=== PATIENT | female | born 2000 | race African-American/Black ===

== ENCOUNTER 2019-11-17 20:38 | Emergency (ER) | payer BC ==
[2019-11-17 20:55] VITALS: BP 123/77; TEMP 98.9; BMI 29.0
[2019-11-17] MEDS ORDERED: methylPREDNISolone NA SUCC 125 MG/2 ML VIAL IM ONE (22:30)
--- NOTE | 2019-11-17 22:32 | PDOC ---
History of Present Illness - General Chief Complaint: Asthma Stated Complaint: ASTHMA Time Seen by Provider: 11/17/19 22:24 History Source: Patient - History of Present Illness Initial Comments: 11/17/19 22:27 19 year old female with history of ASTHMA c/o wheezing and reports using inhaler 5 times at home. denies fever/ chills, uri/ cough. ASTHMA ( history of intubation, ICU admission 1 x in 2019.) lmp: 09/2019 Past History - Past Medical History Allergies/Adverse Reactions: Allergies Allergy/AdvReac Type Severity Reaction Status Date / Time No Known Allergies Allergy Verified 11/17/19 20:55 Home Medications: Ambulatory Orders Albuterol 0.083% Nebulizer Opal [Ventolin 0.083% Nebulizer Soln -] 1 neb NEB Q4H PRN #30 vial 11/18/19 Albuterol Sulfate Inhaler - [Ventolin HFA Inhaler -] 1 - 2 inh PO Q4H PRN #1 inhaler 11/18/19 Nebulizer [Aeroeclipse II] 1 each MC QID PRN #1 each 11/18/19 Asthma: Yes COPD: No - Psycho Social/Smoking Cessation Hx Smoking History: Never smoked Have you smoked in the past 12 months: No Information on smoking cessation initiated: No Hx Alcohol Use: No Drug/Substance Use Hx: No Review of Systems - Review of Systems Able to Perform ROS?: Yes Is the patient limited Sinhala proficient: No Constitutional: No: Symptoms Reported, See HPI, Chills, Diaphoresis, Fever, Loss of Appetite, Malaise, Night Sweats, Weakness, Weight Stable, Unintentional Wgt. Loss, Unexplained wgt Loss, Other Respiratory: Yes: Wheezing *Physical Exam - Vital Signs Last Vital Signs Temp Pulse Resp BP Pulse Ox 98.9 F 89 19 123/77 98 11/17/19 20:49 11/17/19 20:49 11/17/19 20:49 11/17/19 20:49 11/17/19 20:49 - Physical Exam General Appearance: Yes: Appropriately Dressed Respiratory/Chest: positive: Decreased Breath Sounds, Wheezing Cardiovascular: positive: Regular Rhythm, Regular Rate Gastrointestinal/Abdominal: positive: Normal Bowel Sounds, Soft. negative: Tender Integumentary: positive: Normal Color, Dry, Warm Neurologic: positive: Fully Oriented, Alert ED Progress Note - Progress Note Progress Note: 11/17/19 22:31 A: asthma exacerbation P: duoneb solumedrol Medical Decision Making - Medical Decision Making 11/17/19 23:51 improved aeration 11/18/19 00:42 improved aeration will d.c home Discharge - Discharge Information Problems reviewed: Yes Clinical Impression/Diagnosis: Asthma exacerbation Qualifiers: Asthma severity: mild Asthma persistence: intermittent Qualified Code(s): J45.21 - Mild intermittent asthma with (acute) exacerbation Condition: Fair Disposition: HOME - Additional Discharge Information Prescriptions: Albuterol 0.083% Nebulizer Opal [Ventolin 0.083% Nebulizer Soln -] 1 neb NEB Q4H PRN #30 vial PRN Reason: Asthma Albuterol Sulfate Inhaler - [Ventolin HFA Inhaler -] 1 - 2 inh PO Q4H PRN #1 inhaler PRN Reason: Asthma Nebulizer [Aeroeclipse II] 1 each MC QID PRN #1 each PRN Reason: Asthma - Follow up/Referral Referrals: Romina Burdick [Primary Care Provider] - - Patient Discharge Instructions Patient Printed Discharge Instructions: Asthma -- Adult Additional Instructions: Use albuterol every 4 hours as needed for wheezing. Take prednisone as prescribed It is very important that you follow-up with a administrative director as soon as possible Return to the emergency room for any worsening symptoms - Post Discharge Activity Work/Back to School Note: Back to Work
--- NOTE | 2019-11-17 22:32 | PDOC ---
*Physical Exam - Vital Signs Last Vital Signs Temp Pulse Resp BP Pulse Ox 98.9 F 89 19 123/77 98 11/17/19 20:49 11/17/19 20:49 11/17/19 20:49 11/17/19 20:49 11/17/19 20:49 Medical Decision Making - Medical Decision Making 11/17/19 22:32 Patient seen by the advanced practice provider under my direct supervision. Ancillary testing reviewed as necessary. I agree with plan as outlined by the advanced practice provider. Discharge - Discharge Information Problems reviewed: Yes Clinical Impression/Diagnosis: Asthma exacerbation - Follow up/Referral Referrals: Romina Burdick [Primary Care Provider] - - Patient Discharge Instructions - Post Discharge Activity
[2019-11-17] MEDS ORDERED: ALBUTEROL SO4 2.5/IPRATROPIUM 0.5 INH SOL 3 ML VIAL.NEB. NEB ONE (23:10)
[2019-11-17] MEDS ORDERED: methylPREDNISolone NA SUCC 125 MG/2 ML VIAL ONE (23:11)
[2019-11-17] MEDS: ALBUTEROL SO4 2.5/IPRATROPIUM 0.5 INH SOL 3 ML VIAL.NEB. NEB SCH ×2 (23:21→23:59)
[2019-11-18 01:01] VITALS: PULSE 84
== END 2019-11-18 01:15 | disposition home or self-care (01) ==
LOC: JER 20:38
PROC: 3E0F7GC Introduction of Other Therapeutic Substance into Respiratory Tract, Via Natural or Artificial Opening (ICD-10-PCS; principal; 2019-11-17)
PROC: 3E0233Z Introduction of Anti-inflammatory into Muscle, Percutaneous Approach (ICD-10-PCS; 2019-11-17)
DX: J45.21 Mild intermittent asthma with (acute) exacerbation (principal)
CPT/HCPCS: 99282-25

== ENCOUNTER 2023-04-09 10:29 | Emergency (ER) | payer OTHER, BC ==
[2023-04-09 10:38] VITALS: BP 109/73; PULSE 67; RESP 18; TEMP 98; BMI 26.6
== END 2023-04-09 11:50 | disposition home or self-care (01) ==
LOC: JERFT 10:29
DX: Z04.1 Encounter for examination and observation following transport accident (principal)
CPT/HCPCS: 99281-25

== ENCOUNTER 2024-09-29 09:08 | Emergency (ER) | payer OTHER ==
[2024-09-29 09:18] VITALS: BP 108/71; PULSE 84; RESP 16; TEMP 98.3; BMI 25.8
== END 2024-09-29 10:19 | disposition home or self-care (01) ==
LOC: JERFT 09:08
DX: R06.2 Wheezing (principal); Z76.0 Encounter for issue of repeat prescription
CPT/HCPCS: 99283-25